=== PATIENT | female | born 1940 | race African-American/Black ===

== ENCOUNTER 2023-07-29 14:23 | Outpatient (AMB) | payer MEDICARE, SELFPAY ==
--- NOTE | 2023-07-29 14:27 | HO.NEPHOV ---
Vital Signs 07/29/23 14:34 Height 5 ft 6 in Weight 189 lb 6 oz BMI 30.6 BP 94/60 Blood Pressure Location Rt brachial Position Sitting Pulse 92 Pulse Source Pulse Oximeter Pulse Oximetry (%) 98 Oxygen Delivery Method Room Air Intake Visit Reasons: CKD/ LVM Automatic Transmission Mechanic Required: No Accompanied by: Self / Same As Patient Allergies acetaminophen [From Tylenol-Codeine] Adverse Reaction (Verified 07/29/23 14:38) Unknown codeine [From Tylenol-Codeine] Adverse Reaction (Verified 07/29/23 14:38) Unknown HPI Comments Details: I had the privilege of seeing Mica in consultation for her chronic kidney disease and hypertension. She is 83 years of age and has been having CKD for some time. She had moved back to [place] from [place] not too long ago. She has been feeling dizzy and her blood pressure has been running low normal. She denies any chest pain, shortness of breath, paroxysmal nocturnal dyspnea, orthopnea, hematuria or flank pain. She denies any coronary artery disease, congestive heart failure, CVA, carotid stenosis, renal artery stenosis or peripheral arterial symptoms. She denies any epistaxis, recurrent sinusitis, hemoptysis, hematuria. She has no family history of any ESRD or renal transplantation. She had rheumatoid factor positive in the past. She denies taking any nonsteroidal anti-inflammatory medications on a regular basis. [facility] Medical History (Updated 07/29/23 @ 14:58 by Delio Del Toro MD) Hypertension Stage 3 chronic kidney disease Surgical History (Updated 07/29/23 @ 14:39 by Arti Barajas MA) History of foot surgery Family History (Updated 07/29/23 @ 14:39 by Arti Barajas MA) Mother Hypertension Social History (Updated 07/29/23 @ 14:39 by Arti Barajas MA) Alcohol intake: never Patient Tobacco Use Status: Never used Tobacco Physical Exam Vital Signs: Last Vital Signs Pulse 92 07/29/23 14:34 BP 94/60 07/29/23 14:34 Pulse Ox 98 07/29/23 14:34 Oxygen Delivery Method Room Air 07/29/23 14:34 BMI result Body Mass Index 30.6 Const General: comfortable and no acute distress Orientation/consciousness: patient oriented x3 HEENT Head: Yes normocephalic Mouth: Normal oral and palatal mucosa present Eyes EOM: EOMs intact bilaterally Neck Neck: Yes supple Resp Auscultation: clear to auscultation bilaterally Cardio Jugular venous distension: no JVD Rate: regular rate GI Palpation (GI): Soft to palpation Auscultation: normal bowel sounds General: Yes no CVA tenderness Back/Spine/Pelvis Back: no CVA tenderness Skin General skin exam: no rashes or lesions noted Neuro General: patient oriented x3 and moves all extremities Extrem General: Yes no pedal edema Results Reviewed Nephrology Results: No Data to Display Assessment & Plan Assessment & Plan (1) CKD stage 3a, GFR 45-59 ml/min: Code(s): N18.31 - Chronic kidney disease, stage 3a Category: Medical (2) Hypertension: Code(s): I10 - Essential (primary) hypertension Category: Medical Qualifiers: Hypertension type: primary hypertension Qualified Code(s): I10 - Essential (primary) hypertension Plan Mica has CKD most likely due to vascular disease and age-related loss of renal function. Her blood pressure has been running low and she has been feeling dizzy. She has been taking angiotensin receptor koko which I discontinued today. She might have been having her recurrent tubular injury due to hypoperfusion of her kidney from low blood pressures with resultant loss of GFR. She has not taking any nonsteroidal anti-inflammatories on a regular basis now. I ordered follow-up blood work. I shall consider doing renal imaging and further extensive workup based on evolving data. I had the opportunity to answered all her questions. Follow-up appointment given. Orders: Orders Complete Blood Count Auto Diff 07/29/23 I10 - Essential (primary) hypertension, N18.31 - Chronic kidney disease, stage 3a Electrolytes 07/29/23 I10 - Essential (primary) hypertension, N18.31 - Chronic kidney disease, stage 3a Parathyroid Hormone Intact 07/29/23 I10 - Essential (primary) hypertension, N18.31 - Chronic kidney disease, stage 3a Phosphorus 07/29/23 I10 - Essential (primary) hypertension, N18.31 - Chronic kidney disease, stage 3a Immunofixation Pnl, Serum 07/29/23 I10 - Essential (primary) hypertension, N18.31 - Chronic kidney disease, stage 3a Creatinine 07/29/23 I10 - Essential (primary) hypertension, N18.31 - Chronic kidney disease, stage 3a Blood Urea Nitrogen 07/29/23 I10 - Essential (primary) hypertension, N18.31 - Chronic kidney disease, stage 3a Calcium 07/29/23 I10 - Essential (primary) hypertension, N18.31 - Chronic kidney disease, stage 3a Coding Level of Care Code New Pt Level 4 (60558) Diagnoses CKD stage 3a, GFR 45-59 ml/min N18.31 Primary hypertension I10 Hypertension type: primary hypertension
[2023-07-29 14:34] VITALS: BP 94/60; PULSE 92; O2SAT 98; BMI 30.6
== END 2023-07-29 15:10 | disposition home or self-care (01) ==
PROVIDERS: PCP Internal Medicine; Visit Provider Internal Medicine Nephrology
DX: N18.31 Chronic kidney disease, stage 3a (principal); I10 Essential (primary) hypertension
CPT/HCPCS: 99204

== ENCOUNTER → 2023-07-29 14:23 | Outpatient (BNVA) | payer MEDICARE, SELFPAY | PROVIDERS: PCP Internal Medicine; Visit Provider Internal Medicine Nephrology | DX: I12.9 Hypertensive chronic kidney disease with stage 1 through stage 4 chronic kidney disease, or unspecified chronic kidney disease (principal); N18.31 Chronic kidney disease, stage 3a | CPT/HCPCS: 99202 ==

== ENCOUNTER 2023-08-19 13:58 | Outpatient (REF) | payer MEDICARE, SELFPAY ==
[2023-08-19 17:54] LABS: MANUAL DIFF FLAG NO
[2023-08-19 18:19] LABS: Basophils Percent Auto 0.7 % (0-2); Eosinophils Absolute Auto 0.2 X10*3/uL (0.0-0.4); Eosinophils Percent Auto 4.6 % (0-4); Hematocrit 36.3 % (37.0-47.0); Hemoglobin 11.5 g/dl (12.0-16.0); Imm Gran Abs Auto 0.01 X10*3/uL (0.00-0.03); Imm Gran Pct Auto 0.2 % (0.0-0.4); Lymphocytes Absolute Auto 1.3 X10*3/uL (1.2-4.9); Lymphocytes Percent Auto 30.8 % (20-40); Mean Corpuscular HGB Conc 31.7 g/dl (31.0-35.0); Mean Corpuscular Hemoglobin 32.1 pg (27.0-33.0); Mean Corpuscular Volume 101.4 fL (80.0-98.0); Mean Platelet Volume 12.8 fL (9.4-12.3); Monocytes Absolute Auto 0.4 X10*3/uL (0.1-1.2); Monocytes Percent Auto 8.9 % (2-11); Neutrophils Absolute Auto 2.3 x10*3/uL (2.0-8.3); Neutrophils Percent Auto 54.8 % (45-73); Platelet Count 126 X10*3/uL (160-400); Red Blood Count 3.58 X10*6/uL (4.20-5.50); Red Cell Distribution Width 13.3 % (11.0-16.0); White Blood Count 4.2 X10*3/uL (4.8-10.8)
[2023-08-19 18:44] LABS: Anion Gap 11 (12-20); Blood Urea Nitrogen 13 mg/dL (9-16); Calcium 9.5 mg/dL (8.4-10.2); Carbon Dioxide 26 mmol/L (22-29); Chloride 113 mmol/L (96-108); Estimated Glomerular Filt Rate 50; Phosphorus 2.4 mg/dL (2.7-4.5); Sodium 146 mmol/L (135-145)
[2023-08-19 18:55] LABS: Parathyroid Hormone Intact 105.1 pg/mL (8.7-77.1)
[2023-08-26 12:18] LABS: IgA 215 mg/dL (70-320); IgG 1275 mg/dL (600-1540); IgM 59 mg/dL (50-300)
== END 2023-08-19 13:59 | disposition home or self-care (01) ==
LOC: HO.HKASLDS 13:58
PROVIDERS: Visit Provider Internal Medicine Nephrology
DX: I12.9 Hypertensive chronic kidney disease with stage 1 through stage 4 chronic kidney disease, or unspecified chronic kidney disease (principal); N18.31 Chronic kidney disease, stage 3a
CPT/HCPCS: 36415; 80051; 82310; 82565; 82784; 83970; 84100; 84520; 85025; 86334

== ENCOUNTER 2023-08-28 13:39 | Outpatient (AMB) | payer MEDICARE, SELFPAY ==
--- NOTE | 2023-08-28 13:52 | HO.NEPHOV ---
Vital Signs 08/28/23 13:57 Height 5 ft 6 in Weight 189 lb 4 oz BMI 30.5 BP 124/70 Blood Pressure Location Rt brachial Position Sitting Intake Visit Reasons: 1 mon follow up/ Unable to reach Biological Science Technician Required: No Accompanied by: Self / Same As Patient Allergies acetaminophen [From Tylenol-Codeine] Adverse Reaction (Verified 08/28/23 13:57) Unknown codeine [From Tylenol-Codeine] Adverse Reaction (Verified 08/28/23 13:57) Unknown HPI Comments Details: I had the privilege of seeing Mica in follow up for her chronic kidney disease and hypertension. She is 83 years of age and has been having CKD for some time. She had moved back to [place] from [place] not too long ago. She denies any chest pain, shortness of breath, paroxysmal nocturnal dyspnea, orthopnea, hematuria or flank pain. She denies any coronary artery disease, congestive heart failure, CVA, carotid stenosis, renal artery stenosis or peripheral arterial symptoms. She denies any epistaxis, recurrent sinusitis, hemoptysis, hematuria. She has no family history of any ESRD or renal transplantation. She had rheumatoid factor positive in the past. She denies taking any nonsteroidal anti-inflammatory medications on a regular basis. [facility] Medical History (Updated 07/29/23 @ 14:58 by Delio Del Toro MD) Hypertension Stage 3 chronic kidney disease Surgical History History of foot surgery Family History Mother Hypertension Social History Alcohol intake: never Patient Tobacco Use Status: Never used Tobacco Physical Exam Vital Signs: Last Vital Signs BP 124/70 08/28/23 13:57 BMI result Body Mass Index 30.5 Const General: comfortable and no acute distress Orientation/consciousness: patient oriented x3 HEENT Head: Yes normocephalic Mouth: Normal oral and palatal mucosa present Eyes EOM: EOMs intact bilaterally Neck Neck: Yes supple Resp Auscultation: clear to auscultation bilaterally Cardio Jugular venous distension: no JVD Rate: regular rate GI Palpation (GI): Soft to palpation Auscultation: normal bowel sounds General: Yes no CVA tenderness Back/Spine/Pelvis Back: no CVA tenderness Skin General skin exam: no rashes or lesions noted Neuro General: patient oriented x3 and moves all extremities Extrem General: Yes no pedal edema Results Reviewed Nephrology Results: Hgb 11.5 g/dl (12.0-16.0) L 08/19/23 WBC 4.2 X10*3/uL (4.8-10.8) L 08/19/23 Plt Count 126 X10*3/uL (160-400) L 08/19/23 Sodium 146 mmol/L (135-145) H 08/19/23 Potassium 4.0 mmol/L (3.3-5.1) 08/19/23 Chloride 113 mmol/L (96-108) H 08/19/23 Carbon Dioxide 26 mmol/L (22-29) 08/19/23 BUN 13 mg/dL (9-16) 08/19/23 Creatinine 1.04 mg/dL (0.5-1.4) 08/19/23 Calcium 9.5 mg/dL (8.4-10.2) 08/19/23 Phosphorus 2.4 mg/dL (2.7-4.5) L 08/19/23 PTH Intact 105.1 pg/mL (8.7-77.1) H 08/19/23 Assessment & Plan Assessment & Plan (1) CKD stage 3a, GFR 45-59 ml/min: Code(s): N18.31 - Chronic kidney disease, stage 3a Category: Medical (2) Hypertension: Code(s): I10 - Essential (primary) hypertension Category: Medical Qualifiers: Hypertension type: primary hypertension Qualified Code(s): I10 - Essential (primary) hypertension Plan Mica has CKD most likely due to vascular disease and age-related loss of renal function. Her blood pressure has been running low and she had been feeling dizzy. She has been taking angiotensin receptor koko which I discontinued at the last visit and her renal function has settled to baseline. She might have been having her recurrent tubular injury due to hypoperfusion of her kidney from low blood pressures with resultant loss of GFR. She has not taking any nonsteroidal anti-inflammatories on a regular basis now. I did not make any changes today. I had the opportunity to answered all her questions. Follow-up appointment given. Orders: Orders Creatinine Today I10 - Essential (primary) hypertension, N18.31 - Chronic kidney disease, stage 3a Blood Urea Nitrogen Today I10 - Essential (primary) hypertension, N18.31 - Chronic kidney disease, stage 3a Vitamin D 25-OH Total Today I10 - Essential (primary) hypertension, N18.31 - Chronic kidney disease, stage 3a Electrolytes Today I10 - Essential (primary) hypertension, N18.31 - Chronic kidney disease, stage 3a Coding Level of Care Code Est Pt Level 4 (51979) Diagnoses CKD stage 3a, GFR 45-59 ml/min N18.31 Primary hypertension I10 Hypertension type: primary hypertension
[2023-08-28 13:57] VITALS: BP 124/70; BMI 30.5
== END 2023-08-28 14:15 | disposition home or self-care (01) ==
PROVIDERS: PCP Internal Medicine; Visit Provider Internal Medicine Nephrology
DX: N18.31 Chronic kidney disease, stage 3a (principal); I10 Essential (primary) hypertension
CPT/HCPCS: 99214

== ENCOUNTER → 2023-08-28 13:39 | Outpatient (BNVA) | payer MEDICARE, SELFPAY | PROVIDERS: PCP Internal Medicine; Visit Provider Internal Medicine Nephrology | DX: I12.9 Hypertensive chronic kidney disease with stage 1 through stage 4 chronic kidney disease, or unspecified chronic kidney disease (principal); N18.31 Chronic kidney disease, stage 3a | CPT/HCPCS: 99212 ==